=== PATIENT | female | born 1980 | race Caucasian/White ===

== ENCOUNTER 2018-04-02 21:28 | Emergency (ER) | payer OTHER ==
[~2018-04-02] VITALS: Ht 165.1 cm; Wt 77.3 kg
[~2018-04-02 21:28] MED LIST: ALB0.5UD IH; ATR0.5NEB NEB; HYDR-3965 PO; IBUP-1986 PO; PENI500T2 PO; PRED10TA PO
[2018-04-02] MEDS ORDERED: acetaminophen 325mg tablet PO STA (22:10)
[2018-04-02] MEDS ORDERED: ketorolac trometh. 30mg/ml inj. IV ONE (22:10)
[2018-04-02] MEDS ORDERED: normal saline 1000ML IV soln IV ONE (22:10)
[2018-04-02 22:16] LABS: URINE HCG NEGATIVE (NEG)
[2018-04-02 22:23] LABS: CLARITY,URINE CLEAR (Clear); COLOR,URINE YELLOW (Yellow); GLUCOSE, URINE NEGATIVE (Neg); KETONES,URINE NEGATIVE (Neg); LEUKOCYTE ESTERASE ,URINE SMALL (Neg); NITRITES, URINE NEGATIVE (Neg); OCCULT BLOOD,URINE MODERATE (Neg); PROTEIN,URINE NEGATIVE (Neg); UROBILINOGEN,URINE 0.2 E.U/dL (0.2-1.0)
[2018-04-02 22:38] LABS: SQUAMOUS EPITHELIAL CELL,UR MANY /LPF (FEW); UA COLLECTION TYPE CLN CATCH MIDSTREAM
[2018-04-02 22:39] LABS: BACTERIA,URINE 1+ /HPF (Neg); WBC,URINE 20-30 /HPF (0-4)
[2018-04-02 22:51] LABS: BASOPHILS % (AUTO) 0.1 % (0-1); EOSINOPHILS # (AUTO) 0.2 X10'3 (0-0.9); EOSINOPHILS % (AUTO) 1.9 % (0-6); HEMATOCRIT 33.7 % (35.0-45.0); HEMOGLOBIN 10.8 g/dl (12.0-16.0); LYMPHOCYTES # (AUTO) 1.6 X10'3 (1.1-4.8); LYMPHOCYTES % (AUTO) 13.5 % (21-51); MEAN CORPUSCULAR HEMOGLOBIN 24.1 PG (27.0-31.0); MEAN CORPUSCULAR VOLUME 75.2 FL (78-98); MEAN PLATELET VOLUME 8.3 FL (7.4-10.4); MONOCYTES # (AUTO) 1.1 X10'3 (0-0.9); MONOCYTES % (AUTO) 9.5 % (2-12); NEUTROPHILS # (AUTO) 8.8 X10'3 (1.8-7.7); PLATELET COUNT 256 X10'3 (140-440); RED BLOOD COUNT 4.48 X10'6 (4.20-5.60); RED CELL DISTRIBUTION WIDTH 15.2 % (11.5-14.5); WHITE BLOOD COUNT 11.8 X10'3 (4.5-11.0)
[2018-04-02 23:00] LABS: ALANINE AMINOTRANSFERASE 24 U/L (12-78); ALBUMIN 3.3 G/DL (3.4-5.0); ALBUMIN/GLOBULIN RATIO 0.8 (1.1-1.5); ALKALINE PHOSPHATASE 71 IU/L (46-116); ANION GAP 11 (8-16); ASPARTATE AMINO TRANSFERASE 13 U/L (10-37); BILIRUBIN,TOTAL 0.3 MG/DL (0.1-1.0); BLOOD UREA NITROGEN 11 MG/DL (7-18); BUN/CREATININE RATIO 11.7 (6.6-38.0); CHLORIDE 101 MMOL/L (99-107); CREATININE 0.94 MG/DL (0.40-0.90); GLUCOSE 91 MG/DL (70-104); SODIUM 136 MMOL/L (135-145); TOTAL CARBON DIOXIDE 24.4 MMOL/L (24-32); TOTAL PROTEIN 7.2 G/DL (6.4-8.2); eGFR 67 ML/MIN
[2018-04-02] MEDS ORDERED: levoFLOXACIN 250mg tablet PO ONE (23:10)
[2018-04-02] MEDS ORDERED: potassium Cl oral solution 20 MEQ/15 ML PO ONE (23:10)
[2018-04-02] MEDS ORDERED: NAPR-56 PO (23:11)
[2018-04-02] MEDS ORDERED: LEVO500T2 PO (23:11)
[2018-04-02 23:47] VITALS: BP 95/56
== END 2018-04-02 23:48 | disposition home or self-care (01) ==
LOC: ER 21:29
DX: N10 Acute pyelonephritis (principal); J45.909 Unspecified asthma, uncomplicated; G43.909 Migraine, unspecified, not intractable, without status migrainosus; F15.90 Other stimulant use, unspecified, uncomplicated; Z95.1 Presence of aortocoronary bypass graft; Z88.5 Allergy status to narcotic agent; Z91.040 Latex allergy status; Z88.1 Allergy status to other antibiotic agents; Z88.8 Allergy status to other drugs, medicaments and biological substances; Z79.899 Other long term (current) drug therapy
CPT/HCPCS: 36415; 80053; 81001; 81025; 83605; 85025; 87040; 93005; 96361; 96374; 99285; J1885; J7030

== ENCOUNTER 2021-12-02 19:09 | Emergency (ER) | payer BC ==
[~2021-12-02] VITALS: Ht 162.6 cm; Wt 89.1 kg
[2021-12-02 19:20] VITALS: BP 132/71
[2021-12-02 19:47] LABS: CLARITY,URINE SLIGHTLY CLOUDY (Clear); COLOR,URINE YELLOW (Yellow); GLUCOSE, URINE NEGATIVE (Neg); KETONES,URINE NEGATIVE (Neg); LEUKOCYTE ESTERASE ,URINE LARGE (Neg); NITRITES, URINE NEGATIVE (Neg); OCCULT BLOOD,URINE NEGATIVE (Neg); PH,URINE 6.5 (4.8-8.0); PROTEIN,URINE NEGATIVE (Neg); UROBILINOGEN,URINE 0.2 E.U/dL (0.2-1.0)
[2021-12-02 19:48] LABS: URINE HCG NEGATIVE (NEG)
[2021-12-02 19:52] LABS: UA COLLECTION TYPE VOIDED
[2021-12-02 20:09] LABS: BACTERIA,URINE 2+ /HPF (Neg); MUCUS STRANDS FEW /LPF (Neg); SQUAMOUS EPITHELIAL CELL,UR MODERATE /LPF (FEW); TRANSITIONAL EPI CELLS,URINE FEW /HPF; WBC,URINE 20-30 /HPF (0-4)
[2021-12-02] MEDS ORDERED: DOXYCYCLINE 100MG CAPSULE PO STA (21:39)
[2021-12-02] MEDS ORDERED: metroNIDAZOLE 500mg tablet PO ONE (21:40)
[2021-12-02] MEDS ORDERED: fluconazole 100mg tablet PO ONE (21:40)
[2021-12-02] MEDS ORDERED: CefTRIAXone 500MG IM Kit w/LIDOcaine IM ONE (21:40)
[2021-12-02] MEDS ORDERED: DOXY100C77 PO (21:45)
[2021-12-02] MEDS ORDERED: METR-159 PO (21:45)
== END 2021-12-02 22:14 | disposition home or self-care (01) ==
LOC: ER 19:10 → EEVIPCON 19:10 → ER 22:14
DX: N39.0 Urinary tract infection, site not specified (principal); A59.03 Trichomonal cystitis and urethritis; G43.909 Migraine, unspecified, not intractable, without status migrainosus; F41.9 Anxiety disorder, unspecified; J45.909 Unspecified asthma, uncomplicated; F32.9 Major depressive disorder, single episode, unspecified; F15.10 Other stimulant abuse, uncomplicated; Z88.8 Allergy status to other drugs, medicaments and biological substances; Z88.5 Allergy status to narcotic agent; Z88.1 Allergy status to other antibiotic agents; Z91.040 Latex allergy status
CPT/HCPCS: 36415; 81001; 81025; 87077; 87088; 87186; 87210; 87491; 87591; 96372; 99284; J0696; Q0112

== ENCOUNTER 2022-05-29 17:48 | Emergency (ER) | payer BC ==
[~2022-05-29] VITALS: Ht 162.6 cm; Wt 93.2 kg
[2022-05-29 17:51] VITALS: BP 151/57
[2022-05-29] MEDS ORDERED: ipratropium/albuterol 3ml nebule NEB STA (18:37)
[2022-05-29] MEDS ORDERED: predniSONE 20 mg tablet PO ONE (18:40)
[2022-05-29] MEDS ORDERED: ALBU6.7H14 INH (20:16)
[2022-05-29] MEDS ORDERED: PRED20TA PO (20:16)
[2022-05-29] MEDS ORDERED: IPRA3AMP9 IH (20:16)
--- NOTE | 2022-05-29 20:37 | NUR ---
RESP AT BEDSIDE
== END 2022-05-29 21:08 | disposition home or self-care (01) ==
LOC: ER 17:49
DX: J45.909 Unspecified asthma, uncomplicated (principal); G43.909 Migraine, unspecified, not intractable, without status migrainosus; F15.20 Other stimulant dependence, uncomplicated; Z88.8 Allergy status to other drugs, medicaments and biological substances; Z88.1 Allergy status to other antibiotic agents; Z88.5 Allergy status to narcotic agent; Z91.040 Latex allergy status; Z91.041 Radiographic dye allergy status; Z98.51 Tubal ligation status
CPT/HCPCS: 71045; 99283; J7512; 94760

== ENCOUNTER 2022-06-30 07:06 | Emergency (ER) | payer BC ==
[~2022-06-30] VITALS: Ht 157.5 cm; Wt 91.0 kg
[~2022-06-30 07:06] MED LIST changes: +ALBU6.7H14 INH; +IPRA3AMP9 IH
[2022-06-30 07:08] VITALS: BP 125/76
[2022-06-30] MEDS ORDERED: azithromycin 250mg tablet PO ONE (09:20)
[2022-06-30] MEDS ORDERED: AZIT-31 PO (09:37)
--- NOTE | 2022-06-30 09:48 | NUR ---
Pt given and understands d/c instructions. Ambulatory with a steady gait.
== END 2022-06-30 09:50 | disposition home or self-care (01) ==
LOC: ER 07:06
DX: J18.9 Pneumonia, unspecified organism (principal); F41.9 Anxiety disorder, unspecified; G43.909 Migraine, unspecified, not intractable, without status migrainosus; F32.A Depression, unspecified; F15.10 Other stimulant abuse, uncomplicated; Z98.890 Other specified postprocedural states; Z88.8 Allergy status to other drugs, medicaments and biological substances; Z88.5 Allergy status to narcotic agent; Z91.040 Latex allergy status; Z79.899 Other long term (current) drug therapy
CPT/HCPCS: 71045; 87502; 87503; 99284

== ENCOUNTER 2022-08-31 17:09 | Emergency (ER) | payer BC ==
[~2022-08-31] VITALS: Ht 162.6 cm; Wt 92.0 kg
[2022-08-31 17:14] VITALS: BP 140/80
[2022-08-31] MEDS ORDERED: IBUP-1984 PO (18:50)
[2022-08-31] MEDS ORDERED: HYDR-3964 PO (18:50)
== END 2022-08-31 19:23 | disposition home or self-care (01) ==
LOC: ER 17:10
DX: M77.12 Lateral epicondylitis, left elbow (principal); G43.909 Migraine, unspecified, not intractable, without status migrainosus; J45.909 Unspecified asthma, uncomplicated; F41.9 Anxiety disorder, unspecified; F32.A Depression, unspecified; F15.10 Other stimulant abuse, uncomplicated; Z79.899 Other long term (current) drug therapy; Z88.5 Allergy status to narcotic agent; Z79.1 Long term (current) use of non-steroidal anti-inflammatories (NSAID); Z91.040 Latex allergy status
CPT/HCPCS: 99283

== ENCOUNTER 2022-11-16 15:22 | Emergency (ER) | payer BC ==
[~2022-11-16] VITALS: Ht 162.6 cm; Wt 94.0 kg
[~2022-11-16 15:22] MED LIST changes: +HYDR-3964 PO
[2022-11-16 15:42] VITALS: BP 119/76
[2022-11-16 16:26] LABS: BASOPHILS # (AUTO) 0.1 X10'3 (0-0.2); BASOPHILS % (AUTO) 1.1 % (0-1); EOSINOPHILS # (AUTO) 0.4 X10'3 (0-0.9); EOSINOPHILS % (AUTO) 4.7 % (0-6); LYMPHOCYTES % (AUTO) 24.3 % (21-51); MEAN PLATELET VOLUME 7.8 FL (7.4-10.4); MONOCYTES # (AUTO) 0.4 X10'3 (0-0.9); MONOCYTES % (AUTO) 5.3 % (2-12); NEUTROPHILS # (AUTO) 5.2 X10'3 (1.8-7.7); NEUTROPHILS % (AUTO) 64.6 % (42-75); PLATELET COUNT 302 X10'3 (140-440); WHITE BLOOD COUNT 8.1 X10'3 (4.5-11.0)
[2022-11-16 16:27] LABS: URINE HCG NEGATIVE (NEG)
[2022-11-16 16:28] LABS: CLARITY,URINE CLEAR (Clear); COLOR,URINE YELLOW (Yellow); GLUCOSE, URINE NEGATIVE (Neg); KETONES,URINE NEGATIVE (Neg); LEUKOCYTE ESTERASE ,URINE NEGATIVE (Neg); NITRITES, URINE NEGATIVE (Neg); OCCULT BLOOD,URINE NEGATIVE (Neg); PH,URINE 5.5 (4.8-8.0); PROTEIN,URINE NEGATIVE (Neg); UROBILINOGEN,URINE 0.2 E.U/dL (0.2-1.0)
[2022-11-16] MEDS ORDERED: morphine 4 MG/ML inj SYRINge IM ONE (16:30)
[2022-11-16] MEDS ORDERED: ondansetron 4mg rapidly disintigrating tab PO ONE ×2 (16:30→17:15)
[2022-11-16 16:32] LABS: ALANINE AMINOTRANSFERASE 24 U/L (12-78); ALBUMIN 3.9 G/DL (3.4-5.0); ALBUMIN/GLOBULIN RATIO 1.1 (1.1-1.5); ALKALINE PHOSPHATASE 88 IU/L (46-116); ANION GAP 9 (8-16); ASPARTATE AMINO TRANSFERASE 12 U/L (10-37); BILIRUBIN,TOTAL 0.2 MG/DL (0.1-1.0); BLOOD UREA NITROGEN 10 MG/DL (7-18); CALCIUM 8.6 MG/DL (8.5-10.1); CHLORIDE 106 MMOL/L (99-107); CREATININE 0.77 MG/DL (0.40-0.90); GLUCOSE 93 MG/DL (70-104); LIPASE 76 U/L (73-393); POTASSIUM 3.7 MMOL/L (3.5-5.1); SODIUM 142 MMOL/L (135-145); TOTAL CARBON DIOXIDE 26.9 MMOL/L (24-32); TOTAL PROTEIN 7.4 G/DL (6.4-8.2); eGFR 82 ML/MIN
[2022-11-16 16:33] LABS: UA COLLECTION TYPE CLN CATCH MIDSTREAM
[2022-11-16] MEDS ORDERED: HYDROcodone/acetaminophen 10/325mg tab PO ONE (17:15)
[2022-11-16 17:31] LABS: HEMATOCRIT 32.1 % (35.0-45.0); HEMOGLOBIN 10.6 g/dl (12.0-16.0); MEAN CORPUSCULAR HEMOGLOBIN 22.3 PG (27.0-31.0); MEAN CORPUSCULAR VOLUME 67.5 FL (78-98); RED BLOOD COUNT 4.76 X10'6 (4.20-5.60); RED CELL DISTRIBUTION WIDTH 16.9 % (11.5-14.5)
[2022-11-16] MEDS ORDERED: HYDR-3965 PO (17:38)
[2022-11-16] MEDS ORDERED: ONDA4TAB12 PO (17:38)
[2022-11-16 17:56] LABS: ANISOCYTOSIS 1+; MICROCYTOSIS 2+; PLATELET ESTIMATE NORMAL
[2022-11-16 17:58] LABS: POIKILOCYTOSIS 1+
== END 2022-11-16 17:57 | disposition home or self-care (01) ==
LOC: ER 15:22
DX: N83.201 Unspecified ovarian cyst, right side (principal); G43.909 Migraine, unspecified, not intractable, without status migrainosus; J45.909 Unspecified asthma, uncomplicated; F41.9 Anxiety disorder, unspecified; F32.9 Major depressive disorder, single episode, unspecified; Z98.890 Other specified postprocedural states; Z98.51 Tubal ligation status; F15.90 Other stimulant use, unspecified, uncomplicated; Z88.5 Allergy status to narcotic agent; Z88.8 Allergy status to other drugs, medicaments and biological substances; Z88.1 Allergy status to other antibiotic agents; Z91.040 Latex allergy status; Z79.899 Other long term (current) drug therapy
CPT/HCPCS: 36415; 74176; 80053; 81003; 81025; 83690; 85008; 85025; 96372; 99285; J2270; J7030

== ENCOUNTER 2022-11-20 21:46 | Emergency (ER) | payer BC, OTHER ==
[~2022-11-20] VITALS: Ht 162.6 cm; Wt 94.5 kg
[~2022-11-20 21:46] MED LIST changes: +ONDA4TAB12 PO
[2022-11-20] MEDS ORDERED: bacitracin 15gm ointment TP ONE (22:55)
[2022-11-20 23:47] VITALS: BP 135/78
== END 2022-11-20 23:48 | disposition home or self-care (01) ==
LOC: EEVIPCON 21:47 → ER 21:47
DX: S60.812A Abrasion of left wrist, initial encounter (principal); S50.812A Abrasion of left forearm, initial encounter; S50.811A Abrasion of right forearm, initial encounter; G43.909 Migraine, unspecified, not intractable, without status migrainosus; J45.909 Unspecified asthma, uncomplicated; F41.9 Anxiety disorder, unspecified; F15.90 Other stimulant use, unspecified, uncomplicated; F32.9 Major depressive disorder, single episode, unspecified; Z98.51 Tubal ligation status; Z98.890 Other specified postprocedural states; Z88.8 Allergy status to other drugs, medicaments and biological substances; Z88.5 Allergy status to narcotic agent; Z91.040 Latex allergy status; Z88.1 Allergy status to other antibiotic agents; Z79.899 Other long term (current) drug therapy; X58.XXXA Exposure to other specified factors, initial encounter; Y93.89 Activity, other specified; Y92.89 Other specified places as the place of occurrence of the external cause; Y99.8 Other external cause status
CPT/HCPCS: 99282

== ENCOUNTER 2023-01-02 22:22 | Emergency (ER) | payer BC, OTHER ==
[~2023-01-02] VITALS: Ht 162.6 cm; Wt 94.5 kg
[2023-01-02 22:29] VITALS: BP 139/85
[2023-01-02] MEDS ORDERED: dexamethasone sod phosphate 10mg/ml inj PO STA (23:09)
[2023-01-02] MEDS ORDERED: AMOX-117 PO (23:15)
== END 2023-01-02 23:55 | disposition home or self-care (01) ==
LOC: ER 22:22
DX: J02.9 Acute pharyngitis, unspecified (principal); G43.909 Migraine, unspecified, not intractable, without status migrainosus; J45.909 Unspecified asthma, uncomplicated; F15.20 Other stimulant dependence, uncomplicated; Z88.8 Allergy status to other drugs, medicaments and biological substances; Z91.041 Radiographic dye allergy status; Z91.040 Latex allergy status; Z98.51 Tubal ligation status
CPT/HCPCS: 87081; 87880; 99283; J1100

== ENCOUNTER 2023-03-22 05:03 | Outpatient (CLI) | payer BC ==
[2023-03-22 05:22] LABS: CLARITY,URINE CLEAR (Clear); COLOR,URINE YELLOW (Yellow); GLUCOSE, URINE NEGATIVE (Neg); KETONES,URINE NEGATIVE (Neg); LEUKOCYTE ESTERASE ,URINE NEGATIVE (Neg); NITRITES, URINE NEGATIVE (Neg); OCCULT BLOOD,URINE NEGATIVE (Neg); PROTEIN,URINE NEGATIVE (Neg); UROBILINOGEN,URINE 0.2 E.U/dL (0.2-1.0)
[2023-03-22 05:23] LABS: EOSINOPHILS # (AUTO) 0.3 X10'3 (0-0.9)
[2023-03-22 05:25] LABS: BASOPHILS # (AUTO) 0.1 X10'3 (0-0.2); BASOPHILS % (AUTO) 1.2 % (0-1); EOSINOPHILS % (AUTO) 3.1 % (0-6); HEMATOCRIT 36.6 % (35.0-45.0); HEMOGLOBIN 11.4 g/dl (12.0-16.0); LYMPHOCYTES # (AUTO) 3.5 X10'3 (1.1-4.8); LYMPHOCYTES % (AUTO) 31.4 % (21-51); MEAN CORPUSCULAR HEMOGLOBIN 23.6 PG (27.0-31.0); MEAN CORPUSCULAR HGB CONC 31.2 g/dL (33.0-36.5); MEAN CORPUSCULAR VOLUME 75.5 FL (78-98); MEAN PLATELET VOLUME 7.9 FL (7.4-10.4); MONOCYTES # (AUTO) 0.6 X10'3 (0-0.9); MONOCYTES % (AUTO) 5.3 % (2-12); NEUTROPHILS # (AUTO) 6.7 X10'3 (1.8-7.7); PLATELET COUNT 326 X10'3 (140-440); RED BLOOD COUNT 4.84 X10'6 (4.20-5.60); RED CELL DISTRIBUTION WIDTH 16.8 % (11.5-14.5); WHITE BLOOD COUNT 11.3 X10'3 (4.5-11.0)
[2023-03-22 05:27] LABS: UA COLLECTION TYPE VOIDED
[2023-03-22 05:34] LABS: ALANINE AMINOTRANSFERASE 27 U/L (12-78); ALBUMIN 3.9 G/DL (3.4-5.0); ALBUMIN/GLOBULIN RATIO 1.1 (1.1-1.5); ALKALINE PHOSPHATASE 87 IU/L (46-116); ANION GAP 11 (8-16); ASPARTATE AMINO TRANSFERASE 13 U/L (10-37); BILIRUBIN,TOTAL 0.2 MG/DL (0.1-1.0); BLOOD UREA NITROGEN 10 MG/DL (7-18); BUN/CREATININE RATIO 11.8 (10.0-20.0); CALCIUM 8.8 MG/DL (8.5-10.1); CHLORIDE 105 MMOL/L (99-107); CREATININE 0.85 MG/DL (0.40-0.90); GLUCOSE 88 MG/DL (70-104); POTASSIUM 3.9 MMOL/L (3.5-5.1); SODIUM 142 MMOL/L (135-145); TOTAL PROTEIN 7.5 G/DL (6.4-8.2); eGFR 73 ML/MIN
[2023-03-22 05:43] LABS: CHOLESTEROL 239 MG/DL (0-200); HDL CHOLESTEROL 48 MG/DL (35-60); LDL CHOLESTEROL 149 MG/DL (50-100); TRIGLYCERIDES 145 MG/DL (20-135)
== END 2023-03-22 23:59 | disposition home or self-care (01) ==
LOC: LAB 05:03
PROVIDERS: ATTEND Nurse Practitioner Family
DX: Z00.01 Encounter for general adult medical examination with abnormal findings (principal); E78.5 Hyperlipidemia, unspecified; R53.83 Other fatigue
CPT/HCPCS: 36415; 80053; 80061; 81003; 84439; 84443; 85025

== ENCOUNTER 2023-05-17 14:47 | Emergency (ER) | payer BC ==
[~2023-05-17] VITALS: Ht 162.6 cm; Wt 110.0 kg
[2023-05-17 15:46] LABS: BASOPHILS # (AUTO) 0.1 X10'3 (0-0.2); BASOPHILS % (AUTO) 0.7 % (0-1); EOSINOPHILS # (AUTO) 0.4 X10'3 (0-0.9); EOSINOPHILS % (AUTO) 4.7 % (0-6); HEMATOCRIT 36.3 % (35.0-45.0); HEMOGLOBIN 11.4 g/dl (12.0-16.0); LYMPHOCYTES # (AUTO) 1.7 X10'3 (1.1-4.8); LYMPHOCYTES % (AUTO) 22.8 % (21-51); MEAN CORPUSCULAR HEMOGLOBIN 24.1 PG (27.0-31.0); MEAN CORPUSCULAR HGB CONC 31.5 g/dL (33.0-36.5); MEAN CORPUSCULAR VOLUME 76.3 FL (78-98); MEAN PLATELET VOLUME 7.9 FL (7.4-10.4); MONOCYTES # (AUTO) 0.4 X10'3 (0-0.9); MONOCYTES % (AUTO) 5.1 % (2-12); NEUTROPHILS % (AUTO) 66.7 % (42-75); PLATELET COUNT 285 X10'3 (140-440); RED BLOOD COUNT 4.76 X10'6 (4.20-5.60); RED CELL DISTRIBUTION WIDTH 15.5 % (11.5-14.5); WHITE BLOOD COUNT 7.5 X10'3 (4.5-11.0)
[2023-05-17 16:01] LABS: ALKALINE PHOSPHATASE 92 IU/L (46-116); BILIRUBIN,TOTAL 0.1 MG/DL (0.1-1.0); BLOOD UREA NITROGEN 10 MG/DL (7-18); POTASSIUM 3.6 MMOL/L (3.5-5.1); SODIUM 141 MMOL/L (135-145); TOTAL PROTEIN 7.2 G/DL (6.4-8.2)
[2023-05-17 16:21] LABS: ALANINE AMINOTRANSFERASE 25 U/L (12-78); ALBUMIN 3.7 G/DL (3.4-5.0); ALBUMIN/GLOBULIN RATIO 1.1 (1.1-1.5); ANION GAP 10 (8-16); ASPARTATE AMINO TRANSFERASE 12 U/L (10-37); BUN/CREATININE RATIO 13.9 (10.0-20.0); CALCIUM 8.8 MG/DL (8.5-10.1); CHLORIDE 105 MMOL/L (99-107); CREATININE 0.72 MG/DL (0.40-0.90); GLUCOSE 112 MG/DL (70-104); TOTAL CARBON DIOXIDE 26.2 MMOL/L (24-32); eCRCL 88 ML/MIN; eGFR 89 ML/MIN
[2023-05-17 16:29] LABS: PRO BRAIN NATRIURETIC PEPTIDE 184 PG/ML (0-125)
[2023-05-17 17:41] VITALS: BP 127/79; PULSE 83; RESP 18; TEMP 98.6; O2SAT 96
== END 2023-05-17 18:33 | disposition home or self-care (01) ==
LOC: ER 14:47
DX: U07.1 COVID-19 (principal); J06.9 Acute upper respiratory infection, unspecified; G43.909 Migraine, unspecified, not intractable, without status migrainosus; I10 Essential (primary) hypertension; J45.909 Unspecified asthma, uncomplicated; F15.90 Other stimulant use, unspecified, uncomplicated; Z98.51 Tubal ligation status; Z98.891 History of uterine scar from previous surgery; Z79.899 Other long term (current) drug therapy; Z88.8 Allergy status to other drugs, medicaments and biological substances; Z88.1 Allergy status to other antibiotic agents; Z88.2 Allergy status to sulfonamides; Z91.040 Latex allergy status; Z79.2 Long term (current) use of antibiotics
CPT/HCPCS: 36415; 80053; 83880; 84484; 85025; 99283

== ENCOUNTER 2023-05-31 20:43 | Emergency (ER) | payer BC ==
[~2023-05-31] VITALS: Ht 162.6 cm; Wt 89.4 kg
[2023-05-31 21:03] VITALS: TEMP 96.7
[2023-05-31 22:11] LABS: HEMATOCRIT 35.8 % (35.0-45.0); HEMOGLOBIN 11.7 g/dl (12.0-16.0); MEAN CORPUSCULAR HEMOGLOBIN 24.9 PG (27.0-31.0); MEAN CORPUSCULAR HGB CONC 32.7 g/dL (33.0-36.5); MEAN CORPUSCULAR VOLUME 76.3 FL (78-98); MEAN PLATELET VOLUME 7.9 FL (7.4-10.4); PLATELET COUNT 333 X10'3 (140-440); RED BLOOD COUNT 4.69 X10'6 (4.20-5.60); RED CELL DISTRIBUTION WIDTH 15.9 % (11.5-14.5); WHITE BLOOD COUNT 8.7 X10'3 (4.5-11.0)
[2023-06-01 01:44] LABS: ALANINE AMINOTRANSFERASE 23 U/L (12-78); ALBUMIN 3.9 G/DL (3.4-5.0); ALBUMIN/GLOBULIN RATIO 1.1 (1.1-1.5); ALKALINE PHOSPHATASE 98 IU/L (46-116); ANION GAP 10 (8-16); ASPARTATE AMINO TRANSFERASE 15 U/L (10-37); BILIRUBIN,TOTAL 0.1 MG/DL (0.1-1.0); BLOOD UREA NITROGEN 17 MG/DL (7-18); BUN/CREATININE RATIO 19.1 (10.0-20.0); CALCIUM 9.1 MG/DL (8.5-10.1); CHLORIDE 104 MMOL/L (99-107); CREATININE 0.89 MG/DL (0.40-0.90); GLUCOSE 106 MG/DL (70-104); MAGNESIUM 2.2 MG/DL (1.5-2.4); POTASSIUM 3.7 MMOL/L (3.5-5.1); SODIUM 137 MMOL/L (135-145); TOTAL CARBON DIOXIDE 23.5 MMOL/L (24-32); TOTAL PROTEIN 7.5 G/DL (6.4-8.2); eCRCL 70 ML/MIN; eGFR 69 ML/MIN
[2023-06-01 02:21] LABS: HCG SERUM QL NEGATIVE
[2023-06-01 02:29] VITALS: BP 119/78; PULSE 69; O2SAT 98
[2023-06-01] MEDS ORDERED: HYDR-3965 PO (02:48)
[2023-06-01] MEDS ORDERED: DICY10CA88 PO (02:48)
[2023-06-01] MEDS ORDERED: ONDA4TAB12 PO (02:48)
[2023-06-01] MEDS ORDERED: HYDROcodone/acetaminophen 5mg/325mg tablet PO ONE (03:10)
[2023-06-01] MEDS ORDERED: acetaminophen 325mg tablet PO ONE (03:10)
[2023-06-01] MEDS ORDERED: ondansetron 4mg rapidly disintigrating tab PO ONE (03:10)
[2023-06-01] MEDS ORDERED: ketorolac trometh inj. 60 MG/2 ML VIAL IM ONE (03:10)
[2023-06-01] MEDS ORDERED: dicyclomine 10mg/ml 2ml ampule IM ONE ×2 (03:10→03:35)
[2023-06-01 03:36] VITALS: RESP 18
== END 2023-06-01 03:48 | disposition home or self-care (01) ==
LOC: ER 20:44
DX: N92.0 Excessive and frequent menstruation with regular cycle (principal); F31.9 Bipolar disorder, unspecified; G43.909 Migraine, unspecified, not intractable, without status migrainosus; J45.909 Unspecified asthma, uncomplicated; Z88.8 Allergy status to other drugs, medicaments and biological substances; Z88.5 Allergy status to narcotic agent; Z91.040 Latex allergy status
CPT/HCPCS: 36415; 80053; 83735; 84703; 85027; 96372; 99284; J0500; J1885

== ENCOUNTER 2023-09-11 06:15 | Emergency (ER) | payer BC ==
[~2023-09-11] VITALS: Ht 162.6 cm; Wt 97.0 kg
[~2023-09-11 06:15] MED LIST changes: +DICY10CA88 PO
[2023-09-11 06:34] VITALS: BP 112/68
[2023-09-11] MEDS ORDERED: methylPREDNISolone sod succ 125mg/2ml vial IV ONE (06:40)
[2023-09-11] MEDS ORDERED: magnesium 2GM in 50ml NS 50 ML IV ONE (06:40)
[2023-09-11] MEDS ORDERED: ipratropium/albuterol 3ml nebule NEB ONE (06:40)
[2023-09-11 06:57] VITALS: PULSE 74; PULSE 76; RESP 18; O2SAT 99
[2023-09-11] MEDS ORDERED: acetaminophen 325mg tablet PO ONE (07:55)
[2023-09-11] MEDS ORDERED: PRED20TA PO (08:12)
[2023-09-11] MEDS ORDERED: AZIT250T3 PO (08:14)
[2023-09-11] MEDS ORDERED: AZIT-164 PO (08:14)
[2023-09-11 08:32] VITALS: TEMP 98.6
== END 2023-09-11 08:34 | disposition home or self-care (01) ==
LOC: ER 06:16
DX: J45.901 Unspecified asthma with (acute) exacerbation (principal); Z20.822 Contact with and (suspected) exposure to COVID-19; J06.9 Acute upper respiratory infection, unspecified; G43.909 Migraine, unspecified, not intractable, without status migrainosus; F15.90 Other stimulant use, unspecified, uncomplicated; J45.909 Unspecified asthma, uncomplicated; Z95.5 Presence of coronary angioplasty implant and graft; Z79.2 Long term (current) use of antibiotics; Z79.899 Other long term (current) drug therapy; Z88.8 Allergy status to other drugs, medicaments and biological substances
CPT/HCPCS: 36415; 87502; 87503; 87811; 94640; 96365; 96375; 99284; J2930; J3475; 94760

== ENCOUNTER 2023-11-06 04:29 | Outpatient (CLI) | payer BC ==
[2023-11-06 05:25] LABS: BASOPHILS # (AUTO) 0.1 X10'3 (0-0.2); EOSINOPHILS # (AUTO) 0.4 X10'3 (0-0.9); EOSINOPHILS % (AUTO) 4.1 % (0-6); HEMATOCRIT 37.7 % (35.0-45.0); HEMOGLOBIN 11.8 g/dl (12.0-16.0); LYMPHOCYTES # (AUTO) 3.4 X10'3 (1.1-4.8); LYMPHOCYTES % (AUTO) 32.1 % (21-51); MEAN CORPUSCULAR HEMOGLOBIN 23.8 PG (27.0-31.0); MEAN CORPUSCULAR HGB CONC 31.3 g/dL (33.0-36.5); MEAN CORPUSCULAR VOLUME 76.1 FL (78-98); MEAN PLATELET VOLUME 7.7 FL (7.4-10.4); MONOCYTES # (AUTO) 0.5 X10'3 (0-0.9); MONOCYTES % (AUTO) 4.8 % (2-12); NEUTROPHILS # (AUTO) 6.1 X10'3 (1.8-7.7); PLATELET COUNT 375 X10'3 (140-440); RED BLOOD COUNT 4.96 X10'6 (4.20-5.60); RED CELL DISTRIBUTION WIDTH 15.6 % (11.5-14.5); WHITE BLOOD COUNT 10.5 X10'3 (4.5-11.0)
[2023-11-06 05:37] LABS: FERRITIN 4 NG/ML (8-252)
[2023-11-06 06:05] LABS: % IRON SATURATION 3 % (11-46); IRON 17 UG/DL (49-151); TOTAL IRON BINDING CAPACITY 499 UG/DL (259-388)
== END 2023-11-06 23:59 | disposition home or self-care (01) ==
LOC: LAB 04:29
PROVIDERS: ATTEND Nurse Practitioner Family
DX: D64.9 Anemia, unspecified (principal)
CPT/HCPCS: 36415; 82728; 83540; 83550; 84466; 85025

== ENCOUNTER 2023-12-02 09:38 | Emergency (ER) | payer BC ==
[~2023-12-02] VITALS: Ht 162.6 cm; Wt 95.2 kg
[2023-12-02] MEDS: ondansetron 4mg rapidly disintigrating tab PO ONE (11:09)
[2023-12-02] MEDS: acetaminophen 325mg tablet PO ONE (11:09)
[2023-12-02] MEDS ORDERED: ONDA4TAB12 PO (11:49)
[2023-12-02 12:01] VITALS: BP 123/68; PULSE 78; RESP 18; TEMP 98.7; O2SAT 97
== END 2023-12-02 12:02 | disposition home or self-care (01) ==
LOC: ER 09:39
DX: B34.9 Viral infection, unspecified (principal); Z20.822 Contact with and (suspected) exposure to COVID-19; R11.2 Nausea with vomiting, unspecified; G43.909 Migraine, unspecified, not intractable, without status migrainosus; J45.909 Unspecified asthma, uncomplicated; F15.90 Other stimulant use, unspecified, uncomplicated; Z98.891 History of uterine scar from previous surgery; Z98.51 Tubal ligation status; Z95.5 Presence of coronary angioplasty implant and graft; Z79.899 Other long term (current) drug therapy; Z88.1 Allergy status to other antibiotic agents; Z91.040 Latex allergy status; Z88.8 Allergy status to other drugs, medicaments and biological substances
CPT/HCPCS: 36415; 71045; 87502; 87503; 87811; 99284

== ENCOUNTER 2023-12-13 13:14 | Outpatient (CLI) | payer BC | END 2023-12-13 23:59 | disposition home or self-care (01) | LOC: RAD 13:14 | PROVIDERS: ATTEND Nurse Practitioner Family | DX: R05.3 Chronic cough (principal); R06.09 Other forms of dyspnea; R07.81 Pleurodynia | CPT/HCPCS: 71046 ==

== ENCOUNTER 2024-02-28 15:31 | Outpatient (CLI) | payer BC ==
[~2024-02-28 15:31] MED LIST changes: +ONDA-243 PO; -ONDA4TAB12 PO
== END 2024-02-28 23:59 | disposition home or self-care (01) ==
LOC: RAD 15:31
PROVIDERS: ATTEND Physician Assistant
DX: R10.2 Pelvic and perineal pain (principal)
CPT/HCPCS: 76830; 76856; 93976

== ENCOUNTER 2024-04-30 06:28 | Emergency (ER) | payer BC ==
[~2024-04-30] VITALS: Ht 162.6 cm; Wt 94.9 kg
[2024-04-30 06:31] VITALS: TEMP 97.6
[2024-04-30] MEDS ORDERED: PRED20TA PO (08:02)
[2024-04-30] MEDS ORDERED: DOXY100C43 PO (08:02)
[2024-04-30] MEDS: dexamethasone sod phosphate 10mg/ml inj PO STA (08:12)
[2024-04-30 09:56] VITALS: BP 130/94; PULSE 64; RESP 16; O2SAT 94
== END 2024-04-30 09:35 | disposition home or self-care (01) ==
LOC: ER 06:29
DX: J40 Bronchitis, not specified as acute or chronic (principal); M54.9 Dorsalgia, unspecified; G43.909 Migraine, unspecified, not intractable, without status migrainosus; F41.9 Anxiety disorder, unspecified; F32.A Depression, unspecified; F17.210 Nicotine dependence, cigarettes, uncomplicated; F15.90 Other stimulant use, unspecified, uncomplicated; Z20.822 Contact with and (suspected) exposure to COVID-19; Z88.8 Allergy status to other drugs, medicaments and biological substances; Z88.1 Allergy status to other antibiotic agents; Z79.899 Other long term (current) drug therapy; Z79.1 Long term (current) use of non-steroidal anti-inflammatories (NSAID); Z79.2 Long term (current) use of antibiotics; Z79.52 Long term (current) use of systemic steroids; Z98.890 Other specified postprocedural states; Z98.51 Tubal ligation status
CPT/HCPCS: 36415; 71045; 87811; 99285; J1100

== ENCOUNTER 2024-06-14 08:05 | Outpatient (CLI) | payer BC ==
[2024-06-14 08:27] LABS: BASOPHILS # (AUTO) 0.1 X10'3 (0-0.2); BASOPHILS % (AUTO) 1.1 % (0-1); EOSINOPHILS # (AUTO) 0.2 X10'3 (0-0.9); EOSINOPHILS % (AUTO) 2.7 % (0-6); HEMATOCRIT 40.5 % (35.0-45.0); HEMOGLOBIN 13.1 g/dl (12.0-16.0); LYMPHOCYTES # (AUTO) 2.9 X10'3 (1.1-4.8); LYMPHOCYTES % (AUTO) 38.2 % (21-51); MEAN CORPUSCULAR HEMOGLOBIN 26.8 PG (27.0-31.0); MEAN CORPUSCULAR HGB CONC 32.3 g/dL (33.0-36.5); MEAN CORPUSCULAR VOLUME 83.1 FL (78-98); MEAN PLATELET VOLUME 7.8 FL (7.4-10.4); MONOCYTES # (AUTO) 0.5 X10'3 (0-0.9); MONOCYTES % (AUTO) 6.8 % (2-12); NEUTROPHILS # (AUTO) 3.9 X10'3 (1.8-7.7); NEUTROPHILS % (AUTO) 51.2 % (42-75); PLATELET COUNT 304 X10'3 (140-440); RED BLOOD COUNT 4.87 X10'6 (4.20-5.60); WHITE BLOOD COUNT 7.6 X10'3 (4.5-11.0)
[2024-06-14 09:13] LABS: % IRON SATURATION 14 % (11-46); IRON 60 UG/DL (49-151); TOTAL IRON BINDING CAPACITY 418 UG/DL (259-388)
[2024-06-14 09:19] LABS: ANION GAP 8 (8-16); BILIRUBIN,TOTAL 0.4 MG/DL (0.1-1.0); BLOOD UREA NITROGEN 17 MG/DL (7-18); BUN/CREATININE RATIO 18.5 (10.0-20.0); CALCIUM 8.6 MG/DL (8.5-10.1); CHLORIDE 102 MMOL/L (99-107); CREATININE 0.92 MG/DL (0.40-0.90); FERRITIN 7 NG/ML (8-252); GLUCOSE 83 MG/DL (70-104); POTASSIUM 4.1 MMOL/L (3.5-5.1); SODIUM 137 MMOL/L (135-145); TOTAL CARBON DIOXIDE 27.4 MMOL/L (24-32); TOTAL PROTEIN 7.5 G/DL (6.4-8.2); eGFR 66 ML/MIN
[2024-06-14 09:20] LABS: ALANINE AMINOTRANSFERASE 17 U/L (12-78); ALBUMIN/GLOBULIN RATIO 1.1 (1.1-1.5); ALKALINE PHOSPHATASE 88 IU/L (46-116); ASPARTATE AMINO TRANSFERASE 18 U/L (10-37); CHOL/HDL RATIO 4.9 (0.00-4.99); CHOLESTEROL 267 MG/DL (0-200); FREE T4 (FREE THYROXINE) 0.77 NG/DL (0.73-1.40); HDL CHOLESTEROL 55 MG/DL (35-60); LDL CHOLESTEROL 186 MG/DL (50-100); THYROID STIMULATING HORMONE 1.44 ulU/ml (0.34-4.50); TRIGLYCERIDES 83 MG/DL (20-135)
== END 2024-06-14 23:59 | disposition home or self-care (01) ==
LOC: LAB 08:05
PROVIDERS: ATTEND Family Medicine
DX: Z00.01 Encounter for general adult medical examination with abnormal findings (principal); R53.83 Other fatigue; E78.49 Other hyperlipidemia; J45.909 Unspecified asthma, uncomplicated; D64.9 Anemia, unspecified
CPT/HCPCS: 36415; 80053; 80061; 82728; 83540; 83550; 84439; 84443; 84466; 85025

== ENCOUNTER → 2024-07-09 | Outpatient (CLI) | payer BC ==
[~2024-07-09] MED LIST changes: +ALBU18HF2 INH; +ALBU8HFA INH; +ALBUTEROL; +BUDE10.22; +BUDE10.26; +DULO60CA65 PO; +GABA300C PO; +GABAPENTIN; +MONT-40 PO; +PRED20TA PO; +PRED50TA PO; +ROBDML PO
[2024-07-10 11:15] LABS: ESTRADIOL 87.1 pg/mL (.); LUTEINIZING HORMONE 1.6 mIU/mL (.); PROGESTERONE 0.4 ng/mL (.); TESTOSTERONE, SERUM 6 ng/dL (4-50)
[2024-07-10 13:16] LABS: FSH, SERUM 1.7 mIU/mL (.)
[2024-07-15 17:17] LABS: TESTOSTERONE, FREE, DIRECT 0.7 pg/mL (0.0-4.2)
== END | disposition home or self-care (01) ==
LOC: LAB 04:32
PROVIDERS: ATTEND Physician Assistant
DX: Z01.419 Encounter for gynecological examination (general) (routine) without abnormal findings (principal); N92.1 Excessive and frequent menstruation with irregular cycle
CPT/HCPCS: 36415; 82627; 82670; 83001; 83002; 84144; 84402; 84403

== ENCOUNTER 2024-07-18 18:14 | Emergency (ER) | payer BC ==
[~2024-07-18] VITALS: Ht 167.6 cm; Wt 94.1 kg
[~2024-07-18 18:14] MED LIST changes: -ALBU18HF2 INH; -ALBU8HFA INH; -ALBUTEROL; -BUDE10.22; -BUDE10.26; -DULO60CA65 PO; -GABA300C PO; -GABAPENTIN; -MONT-40 PO; -PRED20TA PO; -PRED50TA PO; -ROBDML PO
[2024-07-18 18:16] VITALS: BP 150/80; PULSE 107; O2SAT 95
[2024-07-18 18:40] VITALS: RESP 16
[2024-07-18] MEDS ORDERED: DULO60CA65 PO (18:45)
[2024-07-18] MEDS ORDERED: MONT-40 PO (18:45)
[2024-07-18] MEDS ORDERED: GABAPENTIN (18:45)
[2024-07-18] MEDS ORDERED: ALBUTEROL (18:45)
[2024-07-18] MEDS ORDERED: BUDE10.26 (18:45)
[2024-07-18] MEDS ORDERED: BUDE10.22 (18:45)
[2024-07-18] MEDS ORDERED: GABA300C PO (18:46)
[2024-07-18] MEDS ORDERED: ALBU18HF2 INH (19:12)
[2024-07-18] MEDS ORDERED: PRED20TA PO (19:12)
[2024-07-18] MEDS ORDERED: ROBDML PO (19:12)
[2024-07-18 19:29] VITALS: TEMP 98.4
[2024-07-18] MEDS: predniSONE 20 mg tablet PO STA (19:40)
[2024-07-18] MEDS: prednisone 10mg tablet PO STA (19:40)
== END 2024-07-18 19:41 | disposition home or self-care (01) ==
LOC: ER 18:15
DX: J20.9 Acute bronchitis, unspecified (principal); Z20.822 Contact with and (suspected) exposure to COVID-19; J45.909 Unspecified asthma, uncomplicated; G43.909 Migraine, unspecified, not intractable, without status migrainosus; F41.9 Anxiety disorder, unspecified; F32.A Depression, unspecified; F17.210 Nicotine dependence, cigarettes, uncomplicated; F15.90 Other stimulant use, unspecified, uncomplicated; Z88.8 Allergy status to other drugs, medicaments and biological substances; Z88.5 Allergy status to narcotic agent; Z91.040 Latex allergy status; Z88.1 Allergy status to other antibiotic agents; Z98.51 Tubal ligation status
CPT/HCPCS: 36415; 71046; 87502; 87503; 87811; 99284; J7512

== ENCOUNTER 2024-08-16 21:42 | Emergency (ER) | payer BC ==
[~2024-08-16] VITALS: Ht 162.6 cm; Wt 94.5 kg
[~2024-08-16 21:42] MED LIST changes: -ALB0.5UD IH; +ALBU18HF2 INH; -ALBU6.7H14 INH; +ALBUTEROL; +BUDE10.22; +BUDE10.26; -DICY10CA88 PO; +DULO60CA65 PO; +GABA300C PO; +GABAPENTIN; -HYDR-3964 PO; -HYDR-3965 PO; -IPRA3AMP9 IH; +MONT-40 PO; -ONDA-243 PO; -PENI500T2 PO; -PRED10TA PO; +PRED20TA PO
[2024-08-16] MEDS: predniSONE 20 mg tablet PO ONE (22:51)
[2024-08-16] MEDS: ipratropium/albuterol 3ml nebule NEB ONE (22:53)
[2024-08-16 22:54] VITALS: PULSE 93; RESP 16; O2SAT 96
[2024-08-16 23:02] VITALS: PULSE 92; RESP 16
[2024-08-16 23:43] VITALS: PULSE 89; RESP 16; O2SAT 96
[2024-08-16] MEDS: albuterol 2.5 MG/3 ML nebule NEB ONE (23:43)
[2024-08-16 23:53] VITALS: PULSE 99; RESP 16
[2024-08-17] MEDS ORDERED: ALBU8HFA INH (00:22)
[2024-08-17] MEDS ORDERED: PRED50TA PO (00:22)
[2024-08-17 00:35] VITALS: BP 153/70; PULSE 100; RESP 18; TEMP 98.2; O2SAT 93
== END 2024-08-17 00:36 | disposition home or self-care (01) ==
LOC: ER 21:43
DX: J45.901 Unspecified asthma with (acute) exacerbation (principal); G43.909 Migraine, unspecified, not intractable, without status migrainosus; F41.9 Anxiety disorder, unspecified; F32.A Depression, unspecified; F15.90 Other stimulant use, unspecified, uncomplicated; Z95.1 Presence of aortocoronary bypass graft; Z98.51 Tubal ligation status; Z88.5 Allergy status to narcotic agent; Z88.1 Allergy status to other antibiotic agents; Z88.8 Allergy status to other drugs, medicaments and biological substances; Z91.040 Latex allergy status; Z79.1 Long term (current) use of non-steroidal anti-inflammatories (NSAID); Z79.899 Other long term (current) drug therapy
CPT/HCPCS: 71046; 94640; 99284; J7512; 94760

== ENCOUNTER 2024-08-24 20:18 | Emergency (ER) | payer BC ==
[~2024-08-24] VITALS: Ht 162.6 cm; Wt 95.6 kg
[~2024-08-24 20:18] MED LIST changes: +ALBU8HFA INH; -PRED20TA PO; +PRED50TA PO
[2024-08-24 20:22] VITALS: BP 138/79; PULSE 98; RESP 18; O2SAT 96
[2024-08-24 21:09] LABS: BASOPHILS # (AUTO) 0.1 X10'3 (0-0.2); EOSINOPHILS # (AUTO) 0.2 X10'3 (0-0.9); EOSINOPHILS % (AUTO) 1.3 % (0-6); HEMATOCRIT 39.8 % (35.0-45.0); LYMPHOCYTES # (AUTO) 3.7 X10'3 (1.1-4.8); LYMPHOCYTES % (AUTO) 30.3 % (21-51); MEAN CORPUSCULAR HEMOGLOBIN 26.7 PG (27.0-31.0); MEAN CORPUSCULAR HGB CONC 32.7 g/dL (33.0-36.5); MEAN CORPUSCULAR VOLUME 81.5 FL (78-98); MEAN PLATELET VOLUME 7.4 FL (7.4-10.4); MONOCYTES # (AUTO) 0.7 X10'3 (0-0.9); MONOCYTES % (AUTO) 5.8 % (2-12); NEUTROPHILS # (AUTO) 7.4 X10'3 (1.8-7.7); NEUTROPHILS % (AUTO) 61.6 % (42-75); PLATELET COUNT 493 X10'3 (140-440); RED BLOOD COUNT 4.89 X10'6 (4.20-5.60); RED CELL DISTRIBUTION WIDTH 13.5 % (11.5-14.5); WHITE BLOOD COUNT 12.1 X10'3 (4.5-11.0)
[2024-08-24 21:15] LABS: ALBUMIN 3.6 G/DL (3.4-5.0); ANION GAP 10 (8-16); BLOOD UREA NITROGEN 15 MG/DL (7-18); BUN/CREATININE RATIO 13.8 (10.0-20.0); CALCIUM 8.7 MG/DL (8.5-10.1); CHLORIDE 104 MMOL/L (99-107); CREATININE 1.09 MG/DL (0.40-0.90); GLUCOSE 94 MG/DL (70-104); POTASSIUM 4.1 MMOL/L (3.5-5.1); SODIUM 141 MMOL/L (135-145); TOTAL CARBON DIOXIDE 27.3 MMOL/L (24-32); eCRCL 57 ML/MIN; eGFR 55 ML/MIN
[2024-08-24] MEDS ORDERED: PRED20TA PO (21:57)
[2024-08-24 22:08] VITALS: TEMP 98.7
== END 2024-08-24 22:10 | disposition home or self-care (01) ==
LOC: ER 20:19
DX: R05.9 Cough, unspecified (principal); J45.909 Unspecified asthma, uncomplicated; F41.9 Anxiety disorder, unspecified; F32.A Depression, unspecified; G43.909 Migraine, unspecified, not intractable, without status migrainosus; F15.90 Other stimulant use, unspecified, uncomplicated; Z88.8 Allergy status to other drugs, medicaments and biological substances; Z88.1 Allergy status to other antibiotic agents; Z88.5 Allergy status to narcotic agent; Z98.51 Tubal ligation status; Z95.1 Presence of aortocoronary bypass graft; Z79.1 Long term (current) use of non-steroidal anti-inflammatories (NSAID); Z79.899 Other long term (current) drug therapy
CPT/HCPCS: 36415; 71046; 80048; 85025; 99284

== ENCOUNTER 2024-10-17 16:01 | Emergency (ER) | payer BC ==
[~2024-10-17] VITALS: Ht 165.1 cm; Wt 100.0 kg
[~2024-10-17 16:01] MED LIST changes: -ALBU8HFA INH
[2024-10-17 16:15] VITALS: BP 153/95; PULSE 95; TEMP 98.6; O2SAT 98
[2024-10-17 17:58] VITALS: RESP 16
[2024-10-17] MEDS: ketorolac trometh 15mg/ml vial 15 MG/ML ML IM ONE (17:58)
[2024-10-17] MEDS ORDERED: CYCL-1 PO (18:42)
== END 2024-10-17 19:11 | disposition home or self-care (01) ==
LOC: ER 16:01
DX: M54.50 Low back pain, unspecified (principal); M54.2 Cervicalgia; G43.909 Migraine, unspecified, not intractable, without status migrainosus; J45.909 Unspecified asthma, uncomplicated; Z88.8 Allergy status to other drugs, medicaments and biological substances; Z88.5 Allergy status to narcotic agent; Z88.6 Allergy status to analgesic agent; Z88.1 Allergy status to other antibiotic agents; Z95.1 Presence of aortocoronary bypass graft; Z98.51 Tubal ligation status; Z91.041 Radiographic dye allergy status
CPT/HCPCS: 72040; 72100; 96372; 99284; J1885

== ENCOUNTER 2024-12-20 21:32 | Emergency (ER) | payer BC ==
[~2024-12-20] VITALS: Ht 162.6 cm; Wt 77.7 kg
[~2024-12-20 21:32] MED LIST changes: +CYCL-1 PO
[2024-12-20 21:37] VITALS: PULSE 94; O2SAT 99
[2024-12-20 21:50] VITALS: RESP 22
--- NOTE | 2024-12-20 21:50 | Physician Documentation ---
History of Present Illness ~ Chief Complaint: Cold, cough & congestion Stated Complaint: CONGESTION Time Seen by MD: 21:50 Primary Medical Doctor: [facility] HPI 44-year-old female, history of asthma, presenting with a cough She tells me that she has been ill for the past 4 days. She felt like she started with a viral syndrome including congestion and a cough. This then triggered her asthma and made her have difficulty breathing. She has been having worsening shortness of breath in spite of using her inhalers and nebulizers regularly. No fever today. No vomiting or diarrhea. She tells me that normally she gets bronchitis and requires prednisone and antibiotics. Medication Reconciliation Allergies: Coded Allergies: benzonatate (Verified Allergy, Intermediate, HIVES, 12/20/24) codeine (Verified Allergy, Intermediate, HIVES, 12/20/24) RASH erythromycin base (Verified Allergy, Intermediate, HIVES, 12/20/24) RASH latex (Verified Allergy, Intermediate, RASH, 12/20/24) clindamycin (Verified Allergy, Unknown, HIVES, 12/20/24) Scheduled Albuterol Sulfate (Ventolin Hfa), 2 PUFFS INH Q4HPRN Duloxetine HCl (Duloxetine HCl), 1 CAP PO DAILY, (Reported) Gabapentin (Neurontin), 1 CAP PO Q8H, (Reported) Ibuprofen (Ibuprofen), 1 TAB PO Q8H Montelukast Sodium (Montelukast Sodium), 1 TAB PO DAILY, (Reported) Prednisone (Prednisone), 1 TAB PO DAILY Prednisone* (Prednisone*), 2 TAB PO DAILY Scheduled PRN Cyclobenzaprine* (Cyclobenzaprine*), 1 TAB PO TID PRN for muscle spasms Ipratropium [place] Neb* (Atrovent Neb*), 1 VIAL NEB BID PRN for prn, (Reported) Miscellaneous Medications Budesonide/Formoterol Fumarate (Budesonide-Formoterol 160-4.5), (Reported) Budesonide/Formoterol Fumarate (Symbicort 80-4.5 Mcg Inhaler), (Reported) [Albuterol], (Reported) [Gabapentin], (Reported) Past Medical History Past Medical History: Migraine, Asthma, Liver Disease, Anxiety, Depression Past Surgical History: , tubal ligation Patient History: (CABG) Coronary artery bypass grafting FATHER, Name: Monalisa Sahu (Asthma,seasonal allergies,cardiomyopathy, CABG x 4), Born [birth year], Age: 70, Onset:55 Alcohol Use: None Drug Use: methamphetamine Lives with: S/O Lives In: Home Occupation: employed Review of Systems Constitutional: Denies: fever Respiratory: Reports: cough, shortness of breath, wheezing Physical Exam Vital Signs: Temperature: 96.8, Source: Temporal, Heart Rate: 94, Respiratory Rate: 15, Pulse Oximetry: 99, Weight: 77.650 Physical Exam General: This is a pleasant and nontoxic appearing young female, partner at bedside HEENT: Atraumatic, oropharynx is moist Heart: Mild tachycardic, appears regular Lungs: Breath sounds are generally clear with few scattered expiratory wheezes, she does have a prolonged expiratory phase with deep expiration, normal oxygen saturation on room air, occasional harsh cough Abdomen: Soft, nondistended, nontender all quadrants Extremities: Warm and well-perfused Neuro: Alert and oriented, no focal deficits Psychiatric: Calm and cooperative with exam Progress Results/Orders Results/Orders Orders - SHELLEY GONZALEZ MD Covid19 Binax Poc Result Entry (12/20/24 21:51) Completed Orders - SHELLEY GONZALEZ MD Influenza Type A&B Rapid Test (12/20/24 21:51) Prednisone Tablet (Prednisone Tablet) (12/20/24 22:50) Medications Received in ER Medications (Trade) Dose Ordered Sig/Isamar Route PRN Reason Start Time Stop Time Status Last Admin Dose Admin (predniSONE tablet) 40 mg ONCE ONCE PO 12/20/24 22:50 12/20/24 22:51 DC 12/20/24 22:54 40 MG Vital Signs 12/20/24 12/20/24 12/20/24 21:37 21:50 22:52 Temp 96.8 96.8 Pulse 94 Resp 15 22 B/P (MAP) Pulse Ox 99 Laboratory Tests Test 12/20/24 21:45 Influenza Type A (Rapid) Negative Influenza Type B (Rapid) Negative SARS-CoV-2 Antigen (Rapid) Negative Medical Decision Making Differential Dx:Considerations: Include: Influenza, Pharyngitis-Viral, Pneumonia, URI Differential Diagnosis Asthma exacerbation Assessment The patient presents with 4 days of symptoms that seem most consistent with a viral syndrome and asthma exacerbation. She does not have findings to suggest pneumonia including a reassuring lung exam, she is not hypoxic, no productive cough or fevers today. I feel she would benefit from a 5 day course of prednisone. I discussed the risks and benefits of antibiotics, after which we decided to not proceed with antibiotic treatment at this time. She will be discharged with symptomatic treatment and a plan to follow up with her primary care doctor next week for re-evaluation. Return precautions given. Departure Time of Disposition: 22:46 Disposition: HOME / SELF CARE / HOMELESS Impression: Primary Impression: Acute bronchitis Additional Impression: Asthma exacerbation Condition: Stable Discharge Instructions: Acute Bronchitis, Adult Departure Forms: Excuse form Work or School Excused From: Work May Return but still avoid physical Activity from now until: Dec 22, 2024 Referrals: NO PRIMARY CARE PROVIDER (PCP) Prescriptions Prednisone* (Prednisone*) 20 Mg Tablet 2 TAB PO DAILY for 4 Days, #8 TAB Prov: SHELLEY GONZALEZ MD 12/20/24 Comments You tested negative for COVID-19. The influenza testing is pending, but it is unlikely that you have the flu. You will be contacted if that is positive. Take the steroids as prescribed for a total of 5 days to help with your asthma. Follow-up with your primary care doctor for re-evaluation and to determine if you need antibiotics. Education Educated: Patient, Family Educated regarding: diagnosis, treatment, need for follow up Signature Scribe Signature: neal Attestation: SHELLEY Cheatham MD Dec 20, 2024 21:50
[2024-12-20] MEDS ORDERED: PRED20TA PO (22:50)
[2024-12-20 22:52] VITALS: TEMP 96.8
[2024-12-20] MEDS: predniSONE 20 mg tablet PO ONE (22:54)
== END 2024-12-20 22:56 | disposition home or self-care (01) ==
LOC: ER 21:32
DX: J45.901 Unspecified asthma with (acute) exacerbation (principal); J20.9 Acute bronchitis, unspecified; F41.9 Anxiety disorder, unspecified; F15.90 Other stimulant use, unspecified, uncomplicated; F32.A Depression, unspecified; G43.909 Migraine, unspecified, not intractable, without status migrainosus; Z98.51 Tubal ligation status; Z95.1 Presence of aortocoronary bypass graft; Z88.8 Allergy status to other drugs, medicaments and biological substances; Z88.5 Allergy status to narcotic agent; Z88.1 Allergy status to other antibiotic agents; Z91.040 Latex allergy status; Z79.1 Long term (current) use of non-steroidal anti-inflammatories (NSAID); Z79.899 Other long term (current) drug therapy; Z20.822 Contact with and (suspected) exposure to COVID-19
CPT/HCPCS: 36415; 87502; 87503; 87811; 99283; J7512

== ENCOUNTER 2025-05-31 19:11 | Emergency (ER) | payer BC ==
[~2025-05-31] VITALS: Ht 162.6 cm; Wt 90.6 kg
[2025-05-31 19:38] VITALS: BP 126/78; PULSE 90; RESP 16; TEMP 98.1; O2SAT 99
--- NOTE | 2025-05-31 20:09 | RADIOLOGY REPORT ---
CHEST RADIOGRAPH Indication: productive coughx1 week Technique: 1 view Comparison: DI CHEST,SINGLE VIEW on DOS: 04/30/24, DI CHEST,SINGLE VIEW on DOS: 12/02/23, CHEST,SINGLE VIEW on DOS: 06/30/22, CHEST,SINGLE VIEW on DOS: 05/29/22 FINDINGS: Lines and Tubes: None Lungs/Pleura: Focal consolidation of the right lung base, with mild patchy opacity of the left lung base not appreciated on prior exam. No evident pleural abnormality. Cardiomediastinum: Unremarkable. Other: No acute osseous abnormality. IMPRESSION: 1. Small consolidations in the [id number]-left lung bases compatible with multifocal pneumonia.
--- NOTE | 2025-05-31 20:27 | Physician Documentation ---
History of Present Illness ~ General Chief Complaint: Flu Symptoms Stated Complaint: COLD SYMPTOMS Time Seen by MD: 19:59 Primary Medical Doctor: [facility] Source: patient Mode of Arrival: POV Exam Limitations: no limitations History of Present Illness Initial Comments 45-year-old female with chest congestion sinus congestion sinus pressure believe she has an upper respiratory infection and she has asthma often it can become pneumonia. Patient denies any fevers but does state that her sputum is a nasty green color. No chest pain shortness of breath Medication Reconciliation Allergies: Coded Allergies: benzonatate (Verified Allergy, Intermediate, HIVES, 12/20/24) codeine (Verified Allergy, Intermediate, HIVES, 12/20/24) RASH erythromycin base (Verified Allergy, Intermediate, HIVES, 12/20/24) RASH latex (Verified Allergy, Intermediate, RASH, 12/20/24) clindamycin (Verified Allergy, Unknown, HIVES, 12/20/24) Scheduled Albuterol Sulfate (Ventolin Hfa), 2 PUFFS INH Q4HPRN Duloxetine HCl (Duloxetine HCl), 1 CAP PO DAILY, (Reported) Gabapentin (Neurontin), 1 CAP PO Q8H, (Reported) Ibuprofen (Ibuprofen), 1 TAB PO Q8H Montelukast Sodium (Montelukast Sodium), 1 TAB PO DAILY, (Reported) Prednisone (Prednisone), 1 TAB PO DAILY Scheduled PRN Cyclobenzaprine* (Cyclobenzaprine*), 1 TAB PO TID PRN for muscle spasms Ipratropium [place] Neb* (Atrovent Neb*), 1 VIAL NEB BID PRN for prn, (Reported) Miscellaneous Medications Budesonide/Formoterol Fumarate (Budesonide-Formoterol 160-4.5), (Reported) Budesonide/Formoterol Fumarate (Symbicort 80-4.5 Mcg Inhaler), (Reported) [Albuterol], (Reported) [Gabapentin], (Reported) Past Medical History Past Medical History: Migraine, Asthma, Liver Disease, Anxiety, Depression Past Surgical History: , tubal ligation Patient History: (CABG) Coronary artery bypass grafting FATHER, Name: Monalisa Sahu (Asthma,seasonal allergies,cardiomyopathy, CABG x 4), Born [birth year], Age: 70, Onset:55 Alcohol Use: None Drug Use: methamphetamine Lives with: S/O Lives In: Home Occupation: employed Review of Systems All Other Systems at this time: Reviewed and Negative Respiratory: Reports: see HPI Physical Exam Physical Exam Vital Signs: RN Vital Signs have been reviewed: Yes, Temperature: 98.1, Heart Rate: 90, Respiratory Rate: 16, BP: 126/78, Pulse Oximetry: 99, Weight: 90.600 Oxygen Flow Rate: 0 Physical Exam General: Alert, no apparent distress. HEENT: PERRL, EOMI, no injection, moist mucous membranes. Neck: Full range of motion. Respiratory: Lungs clear, no respiratory distress. No wheezes rales or rhonchi speaking in full sentences Chest: No accessory muscle use. Cardiovascular: Regular rate and rhythm, no murmurs. Extremities: Normal range of motion, no deformity. Neurologic: Oriented x4. Psychiatric: Normal mood and affect. Skin: Normal color, warm and dry. No edema, no ecchymosis. Progress Results/Orders Results/Orders Vital Signs 05/31/25 19:38 Temp 98.1 Pulse 90 Resp 16 B/P (MAP) 126/78 Pulse Ox 99 O2 Flow Rate 0 EKG/XRAY/CT/US/VASC/MRI Chest X-Ray : Additional Comments CHEST RADIOGRAPH Indication: productive coughx1 week Technique: 1 view Comparison: DI CHEST,SINGLE VIEW on DOS: 04/30/24, DI CHEST,SINGLE VIEW on DOS: 12/02/23, CHEST,SINGLE VIEW on DOS: 06/30/22, CHEST,SINGLE VIEW on DOS: 05/29/22 FINDINGS: Lines and Tubes: None Lungs/Pleura: Focal consolidation of the right lung base, with mild patchy opacity of the left lung base not appreciated on prior exam. No evident pleural abnormality. Cardiomediastinum: Unremarkable. Other: No acute osseous abnormality. IMPRESSION: 1. Small consolidations in the [id number]-left lung bases compatible with multifocal pneumonia. Medical Decision Making Findings X-ray does show some consolidation as patient states that she has had an upper respiratory infection for a couple of days but also has asthma and has been predisposed to pneumonia several times. Patient is requesting antibiotic. Departure Time of Disposition: 20:27 Disposition: 01 HOME / SELF CARE / HOMELESS Impression: Primary Impression: Pneumonia Condition: Stable Discharge Instructions: Community-Acquired Pneumonia, Adult, [id number] Additional Instructions: Was small areas of consolidation in your lungs that can indicate pneumonia. Your lung sounds were clear which is positive but I do want you to follow up with primary care in 1 week. Return to the ER for any new or worsening symptoms and take antibiotics as prescribed. Departure Forms: Excuse form Work or School Excused From: Work Excuse beginning now through the following date: Jun 03, 2025 Referrals: NO PRIMARY CARE PROVIDER (PCP) Prescriptions Guaifenesin (Guaifenesin) 400 Mg Tablet 1 TAB PO Q8H for cough for 5 Days, #15 TAB 0 Refills Prov: NICHOL ANDERSON NP 05/31/25 Amox Tr/Potassium Clavulanate (Augmentin 875-125 Tablet) 1 Each Tablet 1 TAB PO Q12H for 10 Days, #20 TAB Prov: NICHOL ANDERSON NP 05/31/25 Education Educated: Patient Educated regarding: diagnosis, treatment, need for follow up Signature Scribe Signature: No scribed Attestation: The note accurately reflects work and decisions made by me.Nichol HERNANDEZ 05/31/25 20:29 NICHOL ANDERSON NP May 31, 2025 20:27
[2025-05-31] MEDS ORDERED: AMOX-117 PO (20:29)
[2025-05-31] MEDS ORDERED: GUAI400T92 PO (20:29)
[2025-05-31] MEDS: amox tr/potassium clavulanate 875/125mg TAB PO ONE (20:42)
== END 2025-05-31 20:53 | disposition home or self-care (01) ==
LOC: ER 19:11
DX: J18.9 Pneumonia, unspecified organism (principal); J45.909 Unspecified asthma, uncomplicated; G43.909 Migraine, unspecified, not intractable, without status migrainosus; F41.9 Anxiety disorder, unspecified; F32.A Depression, unspecified; F15.90 Other stimulant use, unspecified, uncomplicated; Z88.5 Allergy status to narcotic agent; Z88.1 Allergy status to other antibiotic agents; Z88.8 Allergy status to other drugs, medicaments and biological substances; Z91.040 Latex allergy status; Z98.51 Tubal ligation status; Z95.1 Presence of aortocoronary bypass graft; Z79.899 Other long term (current) drug therapy
CPT/HCPCS: 71045; 99283